=== PATIENT | female | born 1990 | race African-American/Black ===

== ENCOUNTER 2022-04-17 08:00 | Emergency (ER) | payer SELFPAY ==
[~2022-04-17] VITALS: Ht 157.4 cm; Wt 72.5 kg
[2022-04-17] MEDS ORDERED: KETOROLAC 60 MG/2 ML VIAL IM ONE (08:45)
--- NOTE | 2022-04-17 08:45 | ED Abdominal Pain ---
General Chief Complaint: Back Problems Stated Complaint: OVARY PAIN Nursing Triage Note: PT AMB TO RM 5 A/O X4. PT STATED THAT SHE HAS HAD BACK PAIN FOR ONE WEEK AND THE PAIN INCREASED AT 0400 THIS MORNING. PT STATED THAT HER LAST MENSTRAL PERIOD WAS 2 WEEKS AGO. BED IS IN LOWEST SETTING AND CALL LIGHT IS IN REACH. Source of Information: Patient Exam Limitations: No Limitations History of Present Illness Date Seen by Provider: Apr 17, 2022 Time Seen by Provider: 08:30 Timing/Duration: 1 Week Severity/Quality: Moderate ("8") Location: Suprapubic Radiation: Back Activities at Onset: None Modifying Factors: Improves With Other (bending worsens) Associated Symptoms: Back Pain Allergies and Home Medications Allergies Coded Allergies: Penicillins (Verified Allergy, Unknown, 04/17/22) Patient Home Medication List Home Medication List Reviewed: Yes Review of Systems Review of Systems Constitutional: see HPI EENTM: No Symptoms Reported Respiratory: No Symptoms Reported Cardiovascular: No Symptoms Reported Gastrointestinal: Abdominal Pain Genitourinary: No Symptoms Reported Musculoskeletal: back pain Skin: no symptoms reported Psychiatric/Neurological: No Symptoms Reported All Other Systems Reviewed Negative Unless Noted: Yes Past Hyaysbk-Nlusjn-Ovpwaj Hx Patient Social History Tobacco Use?: Yes Tobacco type used: Cigarettes Smoking Status: Current Everyday Smoker Substance use?: Yes Substance type: Marijuana Substance frequency: Daily Alcohol Use?: No Pt feels they are or have been: Unable to obtain Immunizations Up To Date Influenza Vaccine Up-to-Date: No; Not Current Physical Exam Vital Signs Vital Signs - First Documented 04/17/22 08:18 Temp 36.4 Pulse 73 Resp 14 B/P (MAP) 117/70 (86) Pulse Ox 99 O2 Delivery Room Air Capillary Refill : Less Than 3 Seconds Height/Weight/BMI Height: '" Weight: lbs. oz. kg; 29.00 BMI Method: General Appearance: WD/WN, no apparent distress HEENT: PERRL/EOMI Neck: normal inspection Respiratory: lungs clear, normal breath sounds, no respiratory distress, no accessory muscle use Cardiovascular: regular rate, rhythm Gastrointestinal: soft, tenderness (very mild pelvic tenderness, just medial to the ASIS bilaterally) Extremities: normal range of motion, non-tender, normal inspection, no pedal edema Back: normal inspection, no vertebral tenderness Neurologic/Psychiatric: ammonium nitrate neutralizer II-XII nml as tested, no motor/sensory deficits, alert, normal mood/affect, oriented x 3 Skin: normal color, warm/dry Progress/Results/Core Measures Results/Orders Lab Results Laboratory Tests Test 04/17/22 08:33 Range/Units Urine Color YELLOW Urine Clarity CLEAR Urine pH 6.5 5-9 Urine Specific [place] 1.020 1.016-1.022 Urine Protein NEGATIVE NEGATIVE Urine Glucose (UA) NEGATIVE NEGATIVE Urine Ketones NEGATIVE NEGATIVE Urine Nitrite NEGATIVE NEGATIVE Urine Bilirubin NEGATIVE NEGATIVE Urine Urobilinogen 0.2 < = 1.0 MG/DL Urine Leukocyte Esterase 1+ H NEGATIVE Urine RBC (Auto) NEGATIVE NEGATIVE Urine RBC NONE /HPF Urine WBC 0-2 /HPF Urine Squamous Epithelial Cells 5-10 /HPF Urine Crystals NONE /LPF Urine Bacteria MODERATE H /HPF Urine Casts NONE /LPF Urine Mucus NEGATIVE /LPF Urine Other clue cells present /HPF Urine Culture Indicated NO My Orders Orders - JEREMY PANDYA MD Ua Culture If Indicated (04/17/22 08:42) Urine Bedside (04/17/22 08:42) Ketorolac Injection (Toradol Injection) (04/17/22 08:45) Medications Given in ED Current Medications Medications Dose Ordered Sig/Nory Route Start Time Stop Time Status Last Admin Dose Admin Ketorolac Tromethamine 60 mg ONCE ONCE IM 04/17/22 08:45 04/17/22 08:46 DC 04/17/22 09:16 60 MG Vital Signs/I&O 04/17/22 08:18 Temp 36.4 Pulse 73 Resp 14 B/P (MAP) 117/70 (86) Pulse Ox 99 O2 Delivery Room Air Blood Pressure Mean: 86 Departure Impression Primary Impression: Pelvic pain Disposition: 01 HOME, SELF-CARE Condition: Improved Departure-Patient Inst. Decision time for Depature: 09:54 Referrals: [facility] [place] NO,LOCAL PHYSICIAN (PCP) Primary Care Physician Patient Instructions: LOCAL PHYSICIAN LIST, Pelvic Pain (DC) Add. Discharge Instructions: Drink lots of fluids to stay well-hydrated. You can take [id number] Aleve/naproxen 2 tablets in the morning and 2 tablets at night with food as needed for pain OR you can take 3 tablets of ibuprofen which is 600 mg every 6 hours with food as needed for pain. If you develop a fever, worsening pain, vomiting or any other emergent concerning symptoms please come back to the emergency room for reevaluation. JEREMY PANDYA MD Apr 17, 2022 08:45
[2022-04-17 08:48] LABS: BILIRUBIN,URINE NEGATIVE (NEGATIVE); CLARITY,URINE CLEAR; COLOR,URINE YELLOW; GLUCOSE, URINE (UA) NEGATIVE (NEGATIVE); KETONES,URINE NEGATIVE (NEGATIVE); LEUKOCYTE ESTERASE ,URINE 1+ (NEGATIVE); NITRITE,URINE NEGATIVE (NEGATIVE); PH,URINE 6.5 (5-9); PROTEIN,URINE NEGATIVE (NEGATIVE)
[2022-04-17 08:57] LABS: WBC,URINE 0-2 /HPF
[2022-04-17 08:58] LABS: BACTERIA,URINE MODERATE /HPF
[2022-04-17 09:59] VITALS: BP 108/70
== END 2022-04-17 09:59 | disposition home or self-care (01) ==
LOC: EDUNIT# 08:00 → ER 08:03
DX: R10.2 Pelvic and perineal pain (principal); F17.210 Nicotine dependence, cigarettes, uncomplicated
CPT/HCPCS: 81000; 84703; 99284